=== PATIENT | male | born 2000 | race African-American/Black ===

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

== ENCOUNTER 2018-01-08 14:45 | Emergency (ER) | payer SELFPAY ==
[~2018-01-08] VITALS: Ht 170.2 cm; Wt 70.0 kg
[~2018-01-08 14:45] MED LIST changes: -AMOX500T PO; +AUGM500T7 PO; +DEXA4TAB PO; -MAGICPED SWISH-SWAL
[2018-01-08 14:50] VITALS: BP 139/85; PULSE 86; RESP 16; TEMP 100; O2SAT 100
[2018-01-08] MEDS ORDERED: AMOX500C PO (15:22)
--- NOTE | 2018-01-08 15:22 | PD ---
HPI Chief Complaint: ENT Complaint Time Seen by Provider: 15:20 Travel History International Travel<30 days: No Contact w/Intl Traveler<30days: No Traveled to known affect area: No History of Present Illness HPI 17-year-old male presents to the emergency department with complaint of a sore throat 2 days. Denies lump in throat, difficulty swallowing, unusual drooling. Reports painful swelling. Denies fever at home, but was told he had a fever when he checked into the ER today. Denies cough, nasal congestion. Reports right-sided ear pain. Denies abdominal pain, vomiting. Denies difficulty breathing. has not taken any medications or try any treatments to alleviate his symptoms. Symptoms are mild to moderate in severity. Aggravated with swallowing. No known relieving factors. No others with similar symptoms. Has history of strep throat and says his symptoms are similar. Denies significant past medical history. Has no other medical complaints. No known allergies. No primary care provider. No other modifying factors or associated signs and symptoms. PFSH Past Medical History Cancer: No Cardiovascular Problems: No Endocrine: No Genitourinary: No Immune Disorder: No Musculoskeletal: No Neurologic: No Psychiatric: No Reproductive: No Respiratory: No Social History Alcohol Use: No Tobacco Use: No Substance Use: No Allergies-Medications (Allergen,Severity, Reaction): Coded Allergies: No Known Allergies (Unverified Allergy, Unknown, 01/08/18) Reported Meds & Prescriptions Reported Meds & Active Scripts Active Amoxicillin 500 Mg Cap 500 Mg PO BID 10 Days Review of Systems Except as stated in HPI: all other systems reviewed are Neg Physical Exam Narrative GENERAL: Well-nourished, well-developed 17-year-old male patient, in no acute distress SKIN: Warm and dry. No rash. HEAD: Atraumatic. Normocephalic. EYES: Pupils equal and round at 3 mm with brisk reaction. No scleral icterus. No injection or drainage. PERRLA. ENT: Mucosa pink and dry. Pharynx with 2+ tonsils; with erythema, exudate, and edema. No uvular edema. No uvular, palatal, or tonsillar deviation. Airway patent. Voice is hoarse. EARS: Bilateral pinnae and external canals appear within normal limits. Bilateral tympanic membranes without erythema, dullness or perforation.. NECK: Trachea midline. Anterior cervical lymphadenopathy and tenderness. CARDIOVASCULAR: Regular rate RESPIRATORY: No accessory muscle use. GASTROINTESTINAL: Flat. MUSCULOSKELETAL: No obvious deformities. No clubbing. No cyanosis. No edema. NEUROLOGICAL: Awake and alert. Oriented 3. No obvious cranial nerve deficits. Motor grossly within normal limits. Normal speech. Moves all extremities. PSYCHIATRIC: Appropriate mood and affect; insight and judgment normal. Data Data Last Documented VS Vital Signs Date Time Temp Pulse Resp B/P (MAP) Pulse Ox O2 Delivery O2 Flow Rate FiO2 01/08/18 14:50 100.0 86 16 139/85 (103) 100 Orders Orders Amoxicillin (Trimox) (01/08/18 15:30) Ibuprofen (Motrin) (01/08/18 15:30) Ed Discharge Order (01/08/18 15:23) [facility] Medical Decision Making Medical Screen Exam Complete: Yes Emergency Medical Condition: Yes Medical Record Reviewed: Yes Differential Diagnosis Strep pharyngitis, viral pharyngitis, exudative pharyngitis, less likely peritonsillar abscess Narrative Course 16-year-old male physical exam consistent with exudative pharyngitis. Patient has fever of 100.0 in the ER. He is nontoxic-appearing. Amoxicillin and ibuprofen administered in the ER. Amoxicillin prescribed for home. Instructed patient to follow up with primary care provider. Patient verbalizes understanding and agreement with treatment plan. Patient is medically cleared and stable for discharge. Discussed reasons to return to the emergency department. Patient agrees with treatment plan. The patients vital signs are stable and the patient is stable for outpatient follow-up and treatment. Patient discharged home, stable and in no acute distress. Diagnosis Primary Impression: Exudative pharyngitis [facility]errals: [facility] Primary Care Physician Patient Instructions: General Instructions, Pharyngitis (ED) Departure Forms: Tests/Procedures, Work Release Enter return to work date: Jan 10, 2018 Additional Instructions: Take Antibiotics as prescribed and complete full course of antibiotics Throw away and change your toothbrush 24 hours after starting antibiotics Get plenty of sleep/rest Rest your voice Drink plenty of fluids to prevent dehydration Use warm saltwater gargles to soothe throat pain Use an air humidifier/turn off ceiling fans Use throat lozenges as needed for sore throat Use ibuprofen or acetaminophen as needed to relieve pain and fever Follow-up with your primary care provider within 2-4 days Return immediately to the emergency department with worsening of symptoms Med/Other Pt SpecificInfo: Prescription(s) given Scripts Amoxicillin (Amoxicillin) 500 Mg Cap 500 MG PO BID for Infection for 10 Days, #20 CAP 0 Refills Prov: Fadumo Bloom 01/08/18 Disposition: 01 DISCHARGE HOME Condition: Stable Fadumo Bloom Jan 08, 2018 15:22
[2018-01-08] MEDS ORDERED: AMOXICILLIN (TRIHYDRATE) 500 MG CAP PO ONE (15:30)
[2018-01-08] MEDS ORDERED: IBUPROFEN 600 MG TAB PO ONE (15:30)
== END 2018-01-08 15:33 | disposition home or self-care (01) ==
LOC: NEPK 14:45
DX: J02.9 Acute pharyngitis, unspecified (principal); H92.01 Otalgia, right ear
CPT/HCPCS: 99283

== ENCOUNTER 2018-01-12 06:28 | Inpatient (IN) | payer SELFPAY ==
[2018-01-12] VITALS (7 sets, daily range): BP systolic 115–167; BP diastolic 74–87; PULSE 80–110; RESP 16–20; TEMP 97.6–99.3; O2SAT 98–100
[~2018-01-12] VITALS: Ht 170.2 cm; Wt 61.9 kg
[~2018-01-12 06:28] MED LIST changes: +AMOX500C PO; -AUGM500T7 PO; -DEXA4TAB PO
[2018-01-12] MEDS ORDERED: PIPERACIL-TAZO 4.5 GM PREMIX 100 ML IV STA (07:20)
--- NOTE | 2018-01-12 07:29 | PD ---
HPI Chief Complaint: ENT Complaint Time Seen by Provider: 07:20 Travel History International Travel<30 days: No Contact w/Intl Traveler<30days: No Traveled to known affect area: No History of Present Illness HPI 17-year-old male patient presents to the ER today for 1 week history of worsening sore throat, difficulty swallowing, was seen 5 days ago for same thing , had been put on amoxicillin which she has been taking for 4 days without improvement. He denies any fevers, shortness of breath, or other symptoms. He states his throat is just getting more more swollen. Modifying Factors: None Associated Signs & Symptoms: Sore throat, throat swelling, difficulty swallowing Risk Factors: On antibiotics for 4 days PFSH Past Medical History Cancer: No Cardiovascular Problems: No Endocrine: No Gastrointestinal Disorders: No Genitourinary: No Immune Disorder: No Implanted Vascular Access Dvce: No Musculoskeletal: No Neurologic: No Psychiatric: No Reproductive: No Respiratory: No Past Surgical History Other Surgery: No Social History Alcohol Use: No Tobacco Use: No Substance Use: No Allergies-Medications (Allergen,Severity, Reaction): Coded Allergies: No Known Allergies (Unverified Allergy, Unknown, 01/12/18) Reported Meds & Prescriptions Reported Meds & Active Scripts Active Amoxicillin 500 Mg Cap 500 Mg PO BID 10 Days Review of Systems Except as stated in HPI: all other systems reviewed are Neg Physical Exam Narrative GENERAL: Well-developed young -[place] male patient currently in moderate distress. Awake and oriented 3. SKIN: Focused skin assessment warm/dry. HEAD: Atraumatic. Normocephalic. EYES: Pupils equal and round. No scleral icterus. No injection or drainage. ENT: Mucosa pink and moist. Significant posterior pharyngeal erythema or exudates. No uvular edema. But there is notable edema of bilateral tonsils and peritonsillar areas and what appears to be a large pustule at the left tonsil upper part. Airway patent. NECK: Trachea midline. No JVD. Supple. CARDIOVASCULAR: Regular rate and rhythm. No murmur appreciated. RESPIRATORY: No accessory muscle use. Clear to auscultation. Breath sounds equal bilaterally. GASTROINTESTINAL: Abdomen soft, non-tender, nondistended. Hepatic and splenic margins not palpable. MUSCULOSKELETAL: No obvious deformities. No clubbing. No cyanosis. No edema. NEUROLOGICAL: Awake and alert. No obvious cranial nerve deficits. Motor grossly within normal limits. Normal speech. PSYCHIATRIC: Appropriate mood and affect; insight and judgment normal. Data Data Last Documented VS Vital Signs Date Time Temp Pulse Resp B/P (MAP) Pulse Ox O2 Delivery O2 Flow Rate FiO2 01/12/18 07:00 93 18 135/87 (103) 100 Room Air 01/12/18 06:29 99.3 Orders Orders Complete Blood Count With Diff (01/12/18 07:20) Basic Metabolic Panel (Bmp) (01/12/18 07:20) Group A Rapid Strep Screen (01/12/18 07:20) Iv Access Insert/Monitor (01/12/18 07:20) Piperacil-Tazo 4.5 Gm Premix (Zosyn 4.5 (01/12/18 07:20) Ct Soft Tiss Neck W Iv Cont (01/12/18 ) Methylprednisolone So Succ Inj (Solumedr (01/12/18 07:30) Iohexol 350 Inj (Omnipaque 350 Inj) (01/12/18 07:38) Strep Culture (Group A) (01/12/18 07:26) Clindamycin 900 Mg/Ns Premix (Cleocin 90 (01/12/18 08:30) Admit Order (Ed Use Only) (01/12/18 09:08) Labs Laboratory Tests Test 01/12/18 07:26 White Blood Count 17.1 TH/MM3 Red Blood Count 4.80 MIL/MM3 Hemoglobin 14.9 GM/DL Hematocrit 44.1 % Mean Corpuscular Volume 91.9 FL Mean Corpuscular Hemoglobin 31.1 PG Mean Corpuscular Hemoglobin Concent 33.8 % Red Cell Distribution Width 12.5 % Platelet Count 329 TH/MM3 Mean Platelet Volume 9.2 FL Neutrophils (%) (Auto) 73.9 % Lymphocytes (%) (Auto) 11.3 % Monocytes (%) (Auto) 13.0 % Eosinophils (%) (Auto) 0.8 % Basophils (%) (Auto) 1.0 % Neutrophils # (Auto) 12.6 TH/MM3 Lymphocytes # (Auto) 1.9 TH/MM3 Monocytes # (Auto) 2.2 TH/MM3 Eosinophils # (Auto) 0.1 TH/MM3 Basophils # (Auto) 0.2 TH/MM3 CBC Comment AUTO DIFF Differential Comment AUTO DIFF CONFIRMED Toxic Vacuolation PRESENT Platelet Estimate NORMAL Platelet Morphology Comment NORMAL Keratocytes 1+ Blood Urea Nitrogen 11 MG/DL Creatinine 0.78 MG/DL Random Glucose 100 MG/DL Calcium Level 8.5 MG/DL Sodium Level 137 MEQ/L Potassium Level 3.9 MEQ/L Chloride Level 103 MEQ/L Carbon Dioxide Level 23.7 MEQ/L Anion Gap 10 MEQ/L Estimat Glomerular Filtration Rate 155 ML/MIN MDM Medical Decision Making Medical Screen Exam Complete: Yes Emergency Medical Condition: Yes Medical Record Reviewed: Yes Interpretation(s) Laboratory Tests Test 01/12/18 07:26 White Blood Count 17.1 TH/MM3 (4.0-11.0) Neutrophils (%) (Auto) 73.9 % (16.0-70.0) Monocytes (%) (Auto) 13.0 % (0.0-8.0) Neutrophils # (Auto) 12.6 TH/MM3 (1.8-7.7) Monocytes # (Auto) 2.2 TH/MM3 (0-0.9) Toxic Vacuolation PRESENT (NONE SEEN) Keratocytes 1+ (NORMAL) Last [address] 01/12/18 0000 Signed Impressions: CONCLUSION: 1. Focal area of abnormal soft tissue prominence and decreased attenuation in the left parapharyngeal region most characteristic of infection. There are no g as bubbles in this region. There is mild mass effect on the airway which is dis placed to the right. 2. Reactive appearing cervical chain lymph nodes. Differential Diagnosis Tonsillitis versus peritonsillar abscess versus posterior pharyngeal abscess Narrative Course Left-sided peritonsillar abscess, started to self drained in the ER. Patient was initiated on Zosyn and clindamycin, case has been discussed with Dr. Olivas who would like him to be admitted medically, states he will see the patient later. Case is discussed with Dr. Richter for admission. Diagnosis Primary Impression: Peritonsillar abscess Additional Impression: Sepsis Admitting Information Admitting Physician Requests: it Alisha Billy MD Jan 12, 2018 07:28
[2018-01-12] MEDS ORDERED: methylPREDNISolone SOD SUCC 125 MG/2 ML VIAL IV PUSH ONE (07:30)
[2018-01-12] MEDS ORDERED: IOHEXOL 350 MG/ML 10 ML VIAL (for RAD DIAG) IVCONTRAST ONE (07:38)
--- NOTE | 2018-01-12 07:58 | RADRPT ---
EXAM DATE: 01/12/2018 7:48 AM EDT AGE/SEX: 17 years / Male INDICATIONS: Throat pain for four days. CLINICAL DATA: This is the patient's initial encounter. Patient reports that signs and symptoms have been present for 4 - 6 days and indicates a pain score of 7/10. MEDICAL/SURGICAL HISTORY: None. None. RADIATION DOSE: 13.66 CTDI (mGy) COMPARISON: No prior exams available for comparison. TECHNIQUE: Helical acquisition was performed using a multirow detector CT scanner during the adminis tration of 69 ml Omnipaque 350 (iohexol) nonionic water-soluble contrast as a single exam dose. Usi ng automated exposure control and adjustment of the mA and/or kV according to patient size, radiation dose was kept as low as reasonably achievable to obtain optimal diagnostic quality images. DICOM fo rmat image data is available electronically for review and comparison. FINDINGS: Nasopharynx: The nasopharyngeal airway has a normal configuration. No mucosal thickening or mass is seen. Oropharynx: The intrinsic muscles of the tongue are symmetric. The tonsillar pillars are intact. T he prevertebral soft tissues are not thickened. Larynx: The supraglottic, glottic, and infraglottic structures are intact. Parapharyngeal: There is an area of abnormal soft tissue prominence and decreased attenuation in the left parapharyngeal region best seen on axial image #31 measuring up to approximately 2.3 x 1.8 cm. There is mild mass effect on the airway which is displaced to the left. There is prominent adenoidal tissue. Salivary Glands: The parotid and submandibular glands are intact. Lymph Nodes: No enlarged or necrotic-appearing nodes. There are multiple reactive appearing cervical chain nodes bilaterally. Thyroid: Homogeneous enhancement without evidence of nodule. Bones: Unremarkable. CONCLUSION: 1. Focal area of abnormal soft tissue prominence and decreased attenuation in the left parapharyngea l region most characteristic of infection. There are no gas bubbles in this region. There is mild mas s effect on the airway which is displaced to the right. 2. Reactive appearing cervical chain lymph nodes. Electronically signed by: Van Cardoza MD 01/12/2018 7:57 AM EDT
[2018-01-12 07:59] LABS: AUTOMATED NEUTROPHIL # 12.6 TH/MM3 (1.8-7.7); BASOPHIL # 0.2 TH/MM3 (0-0.2); EOSINOPHIL # 0.1 TH/MM3 (0-0.4); EOSINOPHIL % 0.8 % (0.0-4.0); HEMATOCRIT 44.1 % (39.0-51.0); HEMOGLOBIN 14.9 GM/DL (13.0-17.0); LYMPH % 11.3 % (9.0-44.0); LYMPHOCYTE # 1.9 TH/MM3 (1.0-4.8); MEAN CELL VOLUME 91.9 FL (80.0-100.0); MEAN CORPUSCULAR HEMOGLOBIN 31.1 PG (27.0-34.0); MEAN CORPUSCULAR HGB CONC 33.8 % (32.0-36.0); MEAN PLATELET VOLUME 9.2 FL (7.0-11.0); MONOCYTE # 2.2 TH/MM3 (0-0.9); NEUT % 73.9 % (16.0-70.0); PLATELET COUNT 329 TH/MM3 (150-450); RED CELL DISTRIBUTION WIDTH 12.5 % (11.6-17.2); WHITE BLOOD COUNT 17.1 TH/MM3 (4.0-11.0)
[2018-01-12 08:19] LABS: BICARBONATE 23.7 MEQ/L (21.0-32.0); CALCIUM 8.5 MG/DL (8.5-10.1); CREATININE 0.78 MG/DL (0.60-1.30)
[2018-01-12] MEDS ORDERED: CLINDAMYCIN 900 MG/NS PREMIX 50 ML IV ONE (08:30)
[2018-01-12 08:42] LABS: TOXIC VACUOLATION PRESENT (NONE SEEN)
[2018-01-12 08:43] LABS: KERATOCYTES 1+ (NORMAL)
--- NOTE | 2018-01-12 09:07 | HHI.HP ---
[facility] [place] No Primary Care Physician Admission Diagnosis Peritonsillar abscess Diagnoses: Travel History International Travel<30 Days: No Contact w/Intl Traveler <30 Da: No Traveled to Known Affected Are: No Sepsis Criteria SIRS Criteria (2 or more): Heart rate over 90, WBC > 61378, < 4000 or > 10% bands Sepsis Criteria (SIRS+source): Infect source susp/known History of Present Illness 17 year old male with no known medical history presenting with one week of progressive sore throat associated with difficulty swallowing. He was seen in the ER on 01/08 and prescribed Amoxicillin which he has been taking but he states he has had no improvement in his symptoms. A rapid strep was not done at the time and is negative today in the ER. The patient reports he has had strep infections in the past. Review of EMR reveals he was in the ICU last year for the same presentation with significant pharyngeal edema and peritonsillar abscess. The patient states he had a fever in the ER several days ago but has otherwise not been checking his temperature. He endorses associated halitosis, odynophagia, dysphagia, and muffled voice. He denies cough, abdominal pain, rhinorrhea, or congestion. He also reports some left ear tenderness and soreness in his neck; all of his symptoms, though, have improved since the left-sided peritonsillar abscess visualized on exam and on CT spontaneously drained. Review of Systems Except as stated in HPI: all other systems reviewed are Neg Past Family Social History Past Medical History Peritonsillar abscess October 2017 Past Surgical History None Reported Medications Amoxicillin 500 Mg Cap 500 Mg PO BID 10 Days Allergies: Coded Allergies: No Known Allergies (Unverified Allergy, Unknown, 01/12/18) Active Ordered Medications Clindamycin/ Sodium Chloride 50 ml @ 100 mls/hr ONCE ONCE IV Last administered on 01/12/18at 08:45; Admin Dose 100 MLS/HR; Start 01/12/18 at 08:30 ; Stop 01/12/18 at 08:59; Status DC Iohexol (Omnipaque 350 Inj) 69 ml STK-MED ONCE IVCONTRAST Last administered on at 07:38; Admin Dose 69 ML; Start 01/12/18 at 07:38; Stop 01/12/18 at 07: 39; Status DC Methylprednisolone Sodium Succinate (SoluMEDROL INJ) 125 mg ONCE ONCE IV PUSH Last administered on 01/12/18at 07:44; Admin Dose 125 MG; Start 01/12/18 at 07:30 ; Stop 01/12/18 at 07:31; Status DC Piperacillin Sod/ Tazobactam Sod 100 ml @ 200 mls/hr ONCE STAT IV Last administered on 01/12/18at 07:44; Admin Dose 200 MLS/HR; Start 01/12/18 at 07:20 ; Stop 01/12/18 at 07:49; Status DC Family History Parents alive and well, no significant medical problems run in the family Social History Lives with a friend 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 SKIN: No rashes, ecchymoses or lesions. Cool and dry. HEENT: Atraumatic. Normocephalic. No temporal or scalp tenderness. Pupils equal round and reactive. Extraocular motions intact. No scleral icterus. No injection or drainage. Nose without bleeding, purulent drainage or septal hematoma. Throat with significant erythema and swelling. No obvious pustule after it has spontaneous drained. Voice slightly muffled. Airway patent. NECK: Enlarged submandibular lymphadenopathy. CARDIOVASCULAR: Regular rate and rhythm without murmurs, gallops, or rubs. RESPIRATORY: Clear to auscultation. Breath sounds equal bilaterally. No wheezes , rales, or rhonchi. GASTROINTESTINAL: Abdomen soft, non-tender, nondistended. No guarding. MUSCULOSKELETAL: Extremities without clubbing, cyanosis, or edema. No joint tenderness, effusion, or edema noted. No calf tenderness. NEUROLOGICAL: Awake and alert. Motor and sensory grossly within normal limits. Laboratory Laboratory Tests Test 01/12/18 07:26 White Blood Count 17.1 Red Blood Count 4.80 Hemoglobin 14.9 Hematocrit 44.1 Mean Corpuscular Volume 91.9 Mean Corpuscular Hemoglobin 31.1 Mean Corpuscular Hemoglobin Concent 33.8 Red Cell Distribution Width 12.5 Platelet Count 329 Mean Platelet Volume 9.2 Neutrophils (%) (Auto) 73.9 Lymphocytes (%) (Auto) 11.3 Monocytes (%) (Auto) 13.0 Eosinophils (%) (Auto) 0.8 Basophils (%) (Auto) 1.0 Neutrophils # (Auto) 12.6 Lymphocytes # (Auto) 1.9 Monocytes # (Auto) 2.2 Eosinophils # (Auto) 0.1 Basophils # (Auto) 0.2 CBC Comment AUTO DIFF Differential Comment AUTO DIFF CONFIRMED Toxic Vacuolation PRESENT Platelet Estimate NORMAL Platelet Morphology Comment NORMAL Keratocytes 1+ Blood Urea Nitrogen 11 Creatinine 0.78 Random Glucose 100 Calcium Level 8.5 Sodium Level 137 Potassium Level 3.9 Chloride Level 103 Carbon Dioxide Level 23.7 Anion Gap 10 Estimat Glomerular Filtration Rate 155 Date/Time Source Procedure Growth Status 01/12/18 07:26 Throat Group A Streptococcus Screen Pending Received Result Diagram: 01/12/18 0726 01/12/[address] 01/12/18 0000 Signed Impressions: CONCLUSION: 1. Focal area of abnormal soft tissue prominence and decreased attenuation in the left parapharyngeal region most characteristic of infection. There are no g as bubbles in this region. There is mild mass effect on the airway which is dis placed to the right. 2. Reactive appearing cervical chain lymph nodes. Caprini VTE Risk Assessment Caprini VTE Risk Assessment: No/Low Risk (score <= 1) Caprini Risk Assessment Model Point Value = 1 Point Value = 2 Point Value = 3 Point Value = 5 Age 41-60 Minor surgery BMI > 25 kg/m2 Swollen legs Varicose veins or History of unexplained or recurrent spontaneous Oral contraceptives or hormone replacement Sepsis (< 1 month) Serious lung disease, including pneumonia (< 1 month) Abnormal pulmonary function Acute myocardial infarction Congestive heart failure (< 1 month) History of inflammatory bowel disease Medical patient at bed rest Age 61-74 Arthroscopic surgery Major open surgery (> 45 min) Laparoscopic surgery (> 45 min) Malignancy Confined to bed (> 72 hours) Immobilizing plaster cast Central venous access Age >= 75 History of VTE Family history of VTE Factor V Leiden Prothrombin [id number] Lupus anticoagulant Anticardiolipin antibodies Elevated serum homocysteine Heparin-induced thrombocytopenia Other congenital or acquired thrombophilia Stroke (< 1 month) Elective arthroplasty Hip, pelvis, or leg fracture Acute spinal cord injury (< 1 month) Prophylaxis Regimen Total Risk Factor Score Risk Level Prophylaxis Regimen 0-1 Low Early ambulation 2 Moderate Order ONE of the following: *Sequential Compression Device (SCD) *Heparin 5000 units SQ BID 3-4 Higher Order ONE of the following medications: *Heparin 5000 units SQ TID *Enoxaparin/Lovenox 40 mg SQ daily (WT < 150 kg, CrCl > 30 mL/min) *Enoxaparin/Lovenox 30 mg SQ daily (WT < 150 kg, CrCl > 10-29 mL/min) *Enoxaparin/Lovenox 30 mg SQ BID (WT < 150 kg, CrCl > 30 mL/min) AND/OR *Sequential Compression Device (SCD) 5 or more Highest Order ONE of the following medications: *Heparin 5000 units SQ TID (Preferred with Epidurals) *Enoxaparin/Lovenox 40 mg SQ daily (WT < 150 kg, CrCl > 30 mL/min) *Enoxaparin/Lovenox 30 mg SQ daily (WT < 150 kg, CrCl > 10-29 mL/min) *Enoxaparin/Lovenox 30 mg SQ BID (WT < 150 kg, CrCl > 30 mL/min) AND *Sequential Compression Device (SCD) Assessment and Plan Problem List: (1) Peritonsillar abscess ICD Code: J36 - Peritonsillar abscess Status: Acute Assessment and Plan 17 year old AA male admitted for peritonsillar abscess and pharyngitis with failed outpatient treatment and associated odynophagia, dysphagia, and muffled voice. 1. Peritonsillar abscess - Rapid strep negative but patient has also been on amoxicillin for the past four days - CT neck demonstrating a focal area of abnormal soft tissue prominence and decreased attenuation in the left parapharyngeal region most characteristic of infection with mild mass-effect on the airway displaced to the right - Given Clindamycin, Zosyn, and SoluMedrol x 1 in the ED - Resume Clindamycin 600 mg IV Q6H - Decadron 4 mg IV Q8H - Ofirmev and morphine PRN pain - PPI since getting systemic steroids - ENT consulted, Dr. Oilvas aware - Monitor closely for acute airway compromise 2. Sepsis - Meet criteria based on elevated WBC, tachycardia, and source of infection - Check lactic acid and blood cultures - Treat underlying infection as above - NS at 100 ml/hr x 1 bag DVT prophylaxis: Low risk and ambulatory Code Status FULL Discussed Condition With The patient and Dr. Bennett Physician Certification 2 Midnight Certification Type: Admission for Inpatient Services Order for Inpatient Services The services are ordered in accordance with Medicare regulations or non- Medicare payer requirements, as applicable. In the case of services not specified as inpatient-only, they are appropriately provided as inpatient services in accordance with the 2-midnight benchmark. Estimated LOS (days): 2 2 days is the estimated time the patient will need to remain in the hospital, assuming treatment plan goals are met and no additional complications. Post-Hospital Plan: Home Charisse Richter MD Jan 12, 2018 09:07
[2018-01-12] MEDS ORDERED: LACTULOSE SYRUP 20 GM/30 ML CUP PO PRN (09:30)
[2018-01-12] MEDS ORDERED: DOCUSATE SODIUM 50 MG/SENNA 8.6 MG TAB PO PRN (09:30)
[2018-01-12] MEDS ORDERED: SENNOSIDES 8.6 MG TAB PO PRN (09:30)
[2018-01-12] MEDS ORDERED: NALOXONE HCL 0.4 MG/ML AMP IV PUSH PRN (09:30)
[2018-01-12] MEDS ORDERED: BISACODYL 10 MG SUPP RECTAL PRN (09:30)
[2018-01-12] MEDS ORDERED: ACETAMINOPHEN 325 MG TAB PO PRN (09:30)
[2018-01-12] MEDS ORDERED: MAGNESIUM HYDROXIDE SUSP 30 ML CUP PO PRN (09:30)
[2018-01-12] MEDS ORDERED: SODIUM CHLORIDE 0.9% FLUSH 10 ML FLUSH IV FLUSH PRN (09:30)
[2018-01-12] MEDS ORDERED: ONDANSETRON HCL 4 MG/2 ML VIAL IVP PRN (09:30)
[2018-01-12] MEDS ORDERED: MORPHINE SULFATE 2 MG/ML SYRINGE IM PRN (09:45)
[2018-01-12] MEDS ORDERED: ACETAMINOPHEN 1000 MG/100 ML 100 ML IV PRN (09:45)
[2018-01-12] MEDS: PANTOPRAZOLE SOD 40 MG DELAYED RELEASE TAB PO SCH (09:56)
[2018-01-12] MEDS ORDERED: SODIUM CHLOR 0.9% 1000 ML INJ 1,000 ML IV SCH (10:00)
[2018-01-12] MEDS: CLINDAMYCIN 600 MG/NS PREMIX 50 ML IV SCH ×2 (13:43→21:06)
[2018-01-12] MEDS: DEXAMETHASONE SOD PHOS 4 MG/ML VIAL IV PUSH SCH (16:44)
[2018-01-12] MEDS: SODIUM CHLORIDE 0.9% FLUSH 10 ML FLUSH IV FLUSH SCH (21:06)
[2018-01-13] MEDS: DEXAMETHASONE SOD PHOS 4 MG/ML VIAL IV PUSH SCH ×2 (00:24→08:07)
[2018-01-13 00:46] VITALS: BP 130/70; PULSE 84; RESP 19; TEMP 98.1; O2SAT 100
[2018-01-13] MEDS: CLINDAMYCIN 600 MG/NS PREMIX 50 ML IV SCH ×2 (03:30→08:07)
[2018-01-13 04:39] VITALS: BP 122/65; PULSE 68; RESP 18; TEMP 97.5; O2SAT 99
[2018-01-13 08:02] VITALS: BP 125/78; PULSE 68; RESP 16; TEMP 97.6; O2SAT 99
[2018-01-13] MEDS: SODIUM CHLORIDE 0.9% FLUSH 10 ML FLUSH IV FLUSH SCH (08:07)
[2018-01-13] MEDS: PANTOPRAZOLE SOD 40 MG DELAYED RELEASE TAB PO SCH (08:07)
[2018-01-13] MEDS ORDERED: PRED20 PO (10:12)
[2018-01-13 10:14] LABS: AUTOMATED NEUTROPHIL # 15.7 TH/MM3 (1.8-7.7); BASOPHIL % 0.1 % (0.0-2.0); HEMOGLOBIN 13.9 GM/DL (13.0-17.0); LYMPH % 7.8 % (9.0-44.0); LYMPHOCYTE # 1.4 TH/MM3 (1.0-4.8); MEAN CELL VOLUME 94.3 FL (80.0-100.0); MEAN CORPUSCULAR HEMOGLOBIN 31.2 PG (27.0-34.0); MONO % 6.8 % (0.0-8.0); MONOCYTE # 1.3 TH/MM3 (0-0.9); NEUT % 85.3 % (16.0-70.0); PLATELET COUNT 358 TH/MM3 (150-450); RED BLOOD COUNT 4.45 MIL/MM3 (4.50-5.90); RED CELL DISTRIBUTION WIDTH 12.6 % (11.6-17.2); WHITE BLOOD COUNT 18.4 TH/MM3 (4.0-11.0)
--- NOTE | 2018-01-13 10:16 | HHI.PR ---
Subjective Remarks Feels much better. No more throat pain and able to swallow and eat breakfast this morning ate pancakes and drank fluids without any difficulty. Did see Dr. Olivas yesterday evening. Objective Vitals Vital Signs Date Time Temp Pulse Resp B/P (MAP) Pulse Ox O2 Delivery O2 Flow Rate FiO2 01/13/18 08:02 97.6 68 16 125/78 (94) 99 01/13/18 04:39 97.5 68 18 122/65 (84) 99 01/13/18 00:46 98.1 84 19 130/70 (90) 100 01/12/18 21:30 99 21 01/12/18 20:53 97.7 81 20 115/75 (88) 99 01/12/18 16:00 98.0 83 20 130/75 (93) 98 01/12/18 12:37 97.6 80 20 125/78 (94) 99 01/12/18 10:21 83 18 124/74 (91) 100 Room Air I/O 01/12/18 01/12/18 01/12/18 01/13/18 01/13/18 01/13/18 07:00 15:00 23:00 07:00 15:00 23:00 Intake Total 100 ml Balance 100 ml Intake IV Total 100 ml # Voids 2 1 Result Diagram: 01/12/1872501/12/18725 Objective Remarks GENERAL: This is a well-nourished, well-developed patient, in no apparent distress. HEENT: OP -decreased redness with tonsillar hypertrophy CARDIOVASCULAR: Regular rate and rhythm without murmurs, gallops, or rubs. RESPIRATORY: Clear to auscultation. Breath sounds equal bilaterally. No wheezes , rales, or rhonchi. GASTROINTESTINAL: Abdomen soft, non-tender, nondistended. Normal active bowel sounds MUSCULOSKELETAL: Extremities without clubbing, cyanosis, or edema. NEURO: Alert & Oriented x4 to person, place, time, situation. Moves all ext x4 A/P Problem List: (1) Peritonsillar abscess ICD Code: J36 - Peritonsillar abscess Status: Acute Assessment and Plan 17 year old AA male admitted for peritonsillar abscess and pharyngitis with failed outpatient treatment and associated odynophagia, dysphagia, and muffled voice. 1. Peritonsillar abscess with sepsis on presentation based on elevated WBC tachycardia -symptoms has improved overnight - Rapid strep negative but patient has also been on amoxicillin for the past four days, would continue with antibiotics as symptoms is improved. Prescription for prednisone also to be given -Was given clindamycin 600 mg IV Q6H - Decadron 4 mg IV Q8H -Given Ofirmev and morphine PRN pain - PPI since getting systemic steroids - ENT consulted, Dr. Olivas recommended follow-up in 4 weeks for outpatient surgery of tonsillar removal DVT prophylaxis: No mechanical or pharmaceutical VTE prophalaxis administered due to patient's low risk assessment of VTE. Encouraged ambulation. Discharge Planning Discharge patient to home Condition on discharge: Improved Regular Diet as tolerated Ad Jael activity Rx written: Prednisone 20 mg p.o. daily for 5 days Complete course of amoxicillin Follow-up with primary care physician Follow-up with Dr. Olivas in 4 weeks to evaluate for outpatient surgical intervention for tonsillar removal Shanel Lux MD Jan 13, 2018 10:16
--- NOTE | 2018-01-13 10:18 | HHI.DCPOC ---
Discharge Care Plan Diagnosis: (1) Peritonsillar abscess Your Health Problems Are: Difficulty to Swallow Goals to Promote Your Health * To prevent worsening of your condition and complications * To maintain your health at the optimal level Directions to Meet Your Goals Take your medications as prescribed Follow your dietary instruction Follow activity as directed Complete prescribed antibiotics Follow-up with Dr. Olivas in 4 weeks Keep your appointments as scheduled Take your immunizations and boosters as scheduled If your symptoms worsen call your PCP, if no PCP go to Urgent Care Center or Emergency Room Smoking is Dangerous to Your Health. Avoid second hand smoke Call the 24-hour hour crisis hotline for domestic abuse at Shanel Lux MD Jan 13, 2018 10:18
[2018-01-13 11:07] VITALS: O2SAT 99
== END 2018-01-13 11:07 | disposition home or self-care (01) | DRG 872 ==
LOC: NEPE 06:28 → NEDA 09:10 → N05B 11:41
PROVIDERS: ADMIT Family Medicine; ATTEND Family Medicine
DX: A41.9 Sepsis, unspecified organism (principal); J36 Peritonsillar abscess
CPT/HCPCS: 70491; 80048; 83605; 85025; 87040; 87081; 87880; J1100; J2543; J2930; J7030; Q9967

== ENCOUNTER 2018-01-28 20:05 | Inpatient (IN) ==
[2018-01-29] MEDS ORDERED: Dexamethasone Inj 20 MG/5 ML Vial IV.PUSH ONE (00:37)
[2018-01-29] MEDS ORDERED: Sod Chloride 0.9% Inj 1,000 ML IV.SIG ONE (00:37)
[2018-01-29] MEDS ORDERED: Ketorolac Inj 30 MG/ML (IVP) Vial IV.PUSH ONE (00:37)
--- NOTE | 2018-01-29 00:44 | ED ---
HPI General Chief complaint: Respiratory Symptoms Stated complaint: toothache Time Seen by Provider: 01/29/18 00:33 Source: patient Mode of arrival: ambulatory Limitations: no limitations History of Present Illness HPI narrative: Patient is a 17 year old male who comes in complaining of sore throat. He was here at the end of December for the same thing. He was treated with Decadron and Clindamycin. He says he felt better, but as soon as he stopped the antibiotics, his symptoms came back. He says these current symptoms have been going on for 4 days. He has tried Ibuprofen with minimal relief. He is supposed to follow up with ENT for removal of his tonsils at the end of January. He denies other symptoms. He is having difficulty swallowing. Severity is moderate. Related Data Allergies Allergy/AdvReac Type Severity Reaction Status Date / Time No Known Allergies Allergy Unverified 01/28/18 21:10 Review of Systems Except as stated in HPI: all other systems reviewed are negative Constitutional Reports fever(s) ENT Reports change in voice and Reports sore throat Cardiovascular Denies chest pain Respiratory Denies dyspnea Gastrointestinal Denies nausea and Denies vomiting Musculoskeletal Denies myalgias and Denies arthralgias Integumentary/Breasts Denies change in pigmentation and Denies lesions Neurologic Denies focal weakness PMFSH History History Provided By: Patient Medical History Medical History Patient denies medical problems (Acute) Surgical History Surgical History No history of previous surgery (Acute) Social History Social History Second Hand Smoke Exposure: No Smoking Status: Never smoker How Often Do You Have a Drink Containing Alcohol: Never Recent Travel in [facility] within the Last 8 Weeks: No Recent Out of Country Travel within the Last 8 Weeks: No Exam Narrative Exam Narrative: GENERAL: Awake and alert, in no acute distress. SKIN: Focused skin assessment warm/dry. HEAD: Atraumatic. Normocephalic. EYES: Pupils equal and round. No scleral icterus. ENT: Very enlarged tonsils with exudates present. Mucous membranes pink and moist. NECK: Trachea midline. No JVD. CARDIOVASCULAR: Tachycardia. No murmur appreciated. RESPIRATORY: No accessory muscle use. Clear to auscultation. Breath sounds equal bilaterally. GASTROINTESTINAL: Abdomen soft, non-tender, nondistended. MUSCULOSKELETAL: No obvious deformities. No clubbing. No cyanosis. No edema. NEUROLOGICAL: Awake and alert. No obvious cranial nerve deficits. Motor grossly within normal limits. Normal speech. PSYCHIATRIC: Appropriate mood and affect; insight and judgment normal. Course Initial Documented Vital Signs Temperature 101 F H 01/28/18 21:10 Pulse Rate 107 H 01/28/18 21:10 Respiratory Rate 16 01/28/18 21:10 Blood Pressure 150/91 H 01/28/18 21:10 Pulse Oximetry 100 01/28/18 21:10 Last Documented Vital Signs Temperature 101 F H 01/28/18 21:10 Pulse Rate 107 H 01/28/18 21:10 Respiratory Rate 16 01/28/18 21:10 Blood Pressure 150/91 H 01/28/18 21:10 Pulse Oximetry 100 01/28/18 21:10 Medical Decision Making [facility] Narrative Medical decision making narrative: Patient is a 17-year-old male comes in complaining of grade patient is febrile on arrival. IV established, labs sent. Patient given IV fluids, Decadron, Toradol. CT of the neck ordered. 0245: This patient was signed out to me pending lab work and imaging studies. Briefly this is a 17-year-old male with sore throat for the past few weeks but worse over the past few days, fevers, difficulty swallowing. Recently treated for a left-sided peritonsillar abscess. CT soft tissue neck today reveals diffuse parapharyngeal inflammation with improved left parapharyngeal abscess now measuring 1.1 x 1.2 cm however there has been interval development of an anterior parapharyngeal phlegmon and right parapharyngeal abscess measuring 2.8 x 1.4 cm. The patient has bilateral peritonsillar abscess formation. He has worsening leukocytosis with WBC count of 22.6. He has been given IV fluids, Toradol, Decadron, Unasyn. The plan would be to admit the patient given the interval development of bilateral peritonsillar abscess formation. Lab Data Result diagrams: 01/29/18 01:30 01/29/18 02:08 Lab Results 01/29/18 01/29/1818 Range/Units 01:30 02:08 02:08 WBC 22.6 H (4.0-11.0) th/mm3 RBC 4.61 (4.50-5.90) mil/mm3 Hgb 14.4 (13.0-17.0) gm/dL Hct 42.4 (39.0-51.0) % MCV 92.1 (80.0-100.0) fL MCH 31.2 (27.0-34.0) pg MCHC 33.8 (32.0-36.0) % RDW 13.4 (11.6-17.2) % Plt Count 446 (150-450) th/mm3 MPV 9.0 (7.0-11.0) fL Neut % (Auto) 86.6 H (16.0-70.0) % Lymph % (Auto) 5.7 L (9.0-44.0) % [place] % (Auto) 7.5 (0.0-8.0) % Eos % (Auto) 0.0 (0.0-4.0) % Baso % (Auto) 0.2 (0.0-2.0) % Neut # (Auto) 19.5 H (1.8-7.7) th/mm3 Lymph # (Auto) 1.3 (1.0-4.8) th/mm3 [place] # (Auto) 1.7 H (0.0-0.9) th/mm3 Eos # (Auto) 0.0 (0.0-0.4) th/mm3 Baso # (Auto) 0.1 (0.0-0.2) th/mm3 WBC Differential . Differential Comment Auto diff final Sodium 140 (136-145) meq/L Potassium 4.1 (3.5-5.1) meq/L Chloride 106 (98-107) meq/L Carbon Dioxide 24.6 (21.0-32.0) meq/L Anion Gap 9 (5-15) meq/L BUN 11 (7-18) mg/dL Creatinine 0.86 (0.60-1.30) mg/dL Estimated GFR Greater than 89 (>89) mL/min Random Glucose 79 (74-106) mg/dL Lactic Acid 0.8 (0.4-2.0) mmol/L Calcium 8.6 (8.5-10.1) mg/dL Total Bilirubin 0.5 (0.2-1.0) mg/dL AST 11 L (15-39) U/L ALT 16 (9-52) U/L Alkaline Phosphatase 68 (45-117) U/L Total Protein 7.9 (6.4-8.2) g/dL Albumin 3.4 (3.4-5.0) g/dL Imaging Data Radiologist's impression: ITS Impressions Soft Tissue Neck CT 01/29/18 00:37 CONCLUSION: 1. Diffuse parapharyngeal inflammation with improved left parapharyngeal abscess now measuring 1.1 x 1.2 cm in comparison to 2.3 x 1.[address] exam. However, there has been interval development of anterior parapharyngeal phlegmon and right parapharyngeal abscess measuring 2.8 x 1.4 cm. Discharge Plan Discharge Disposition Patient Disposition: 30 Still Patient Discharge Condition Condition: Stable Discharge Details Diagnosis: Abscess, peritonsillar, Sepsis Physicians Team ED Provider: Eda Nails ED Midlevel Provider: Andres Dodd Primary Care Provider: Primary Care Meenakshii,No Status ED Status: With Doctor
--- NOTE | 2018-01-29 01:31 | CT ---
EXAM DATE: 01/29/2018 1:15 AM EDT AGE/SEX: 17 years / Male INDICATIONS: Dysphagia. Bilateral neck swelling, evaluate for abscess. CLINICAL DATA: This is the patient's initial encounter. Patient reports that signs and symptoms have been present for 1 week and indicates a pain score of 10/10. MEDICAL/SURGICAL HISTORY: None. None. RADIATION DOSE: 14.34 CTDI (mGy) [place]PAR[place]: [facility] [place]AST, 01/12/2018. . TECHNIQUE: Helical acquisition was performed using a multirow detector CT scanner during the adminis tration of 70 ml Omnipaque 350 (iohexol) nonionic water-soluble contrast as a single exam dose. Usi ng automated exposure control and adjustment of the mA and/or kV according to patient size, radiation dose was kept as low as reasonably achievable to obtain optimal diagnostic quality images. DICOM fo rmat image data is available electronically for review and comparison. FINDINGS: Nasopharynx: The nasopharyngeal airway has a normal configuration. No mucosal thickening or mass is seen. Oropharynx: The intrinsic muscles of the tongue are symmetric. The tonsillar pillars are intact. T he prevertebral soft tissues are not thickened. Larynx: The supraglottic, glottic, and infraglottic structures are intact. Parapharyngeal: Previously described left parapharyngeal abscess has improved in size now measuring 1.1 x 1.2 cm in comparison to 2.3 x 1.8 cm. However, there has been interval development of anterior the right parapharyngeal edema with ill-defined low-density collection in the right parapharyngeal sp cookie measuring 2.8 x 1.4 cm. Prominent adenoids. Salivary Glands: The parotid and submandibular glands are intact. Lymph Nodes: Multiple reactive/infectious bilateral cervical nodes similar to prior exam. No necroti c adenopathy. Thyroid: Homogeneous enhancement without evidence of nodule. Bones: Unremarkable. CONCLUSION: 1. Diffuse parapharyngeal inflammation with improved left parapharyngeal abscess now measuring 1.1 x 1.2 cm in comparison to 2.3 x 1.[address] exam. However, there has been interval development of anterior parapharyngeal phlegmon and right parapharyngeal abscess measuring 2.8 x 1.4 cm. Electronically signed by: Meng Emanuel MD 01/29/2018 1:29 AM EDT
[2018-01-29] MEDS ORDERED: Ampicillin/Sulbactam Inj 3 GM in Sodium Chloride 0.9% Inj 100 ML IV.SIG ONE (01:33)
[2018-01-29 01:41] LABS: Baso # (Auto) 0.1 th/mm3 (0.0-0.2); Baso % (Auto) 0.2 % (0.0-2.0); Hematocrit 42.4 % (39.0-51.0); Hemoglobin 14.4 gm/dL (13.0-17.0); Lymph # (Auto) 1.3 th/mm3 (1.0-4.8); Lymph % (Auto) 5.7 % (9.0-44.0); Mean Corpuscular HGB Conc 33.8 % (32.0-36.0); Mean Corpuscular Hemoglobin 31.2 pg (27.0-34.0); Mean Corpuscular Volume 92.1 fL (80.0-100.0); Mono # (Auto) 1.7 th/mm3 (0.0-0.9); Mono % (Auto) 7.5 % (0.0-8.0); Neut # (Auto) 19.5 th/mm3 (1.8-7.7); Neut % (Auto) 86.6 % (16.0-70.0); Platelet Count 446 th/mm3 (150-450); Red Blood Count 4.61 mil/mm3 (4.50-5.90); Red Cell Distribution Width 13.4 % (11.6-17.2); White Blood Count 22.6 th/mm3 (4.0-11.0)
[2018-01-29 02:42] LABS: Alanine Aminotransferase 16 U/L (9-52); Albumin 3.4 g/dL (3.4-5.0); Anion Gap 9 meq/L (5-15); Aspartate Aminotransferase 11 U/L (15-39); Blood Urea Nitrogen 11 mg/dL (7-18); Calcium 8.6 mg/dL (8.5-10.1); Carbon Dioxide 24.6 meq/L (21.0-32.0); Chloride 106 meq/L (98-107); Glomerular Filtration Rate Greater Than 89 mL/min (>89); Glucose,Random 79 mg/dL (74-106); Potassium 4.1 meq/L (3.5-5.1); Sodium 140 meq/L (136-145)
[2018-01-29 02:44] LABS: Alkaline Phosphatase 68 U/L (45-117); Total Protein 7.9 g/dL (6.4-8.2)
[2018-01-29] MEDS ORDERED: Temazepam 15 MG Capsule PO PRN (05:02)
[2018-01-29] MEDS ORDERED: Bisacodyl 10 MG Supp RECTAL PRN (05:02)
[2018-01-29] MEDS ORDERED: Acetaminophen 325 MG Tablet PO PRN ×2 (05:02→11:03)
[2018-01-29] MEDS: Sod Chloride 0.9% Inj 1,000 ML IV.CONT SCH ×2 (05:37→16:26)
[2018-01-29] MEDS: Ampicillin/Sulbactam Inj 3 GM in Sodium Chloride 0.9% Inj 100 ML IV.SIG SCH ×3 (08:10→20:31)
--- NOTE | 2018-01-29 08:48 | P.HPIM ---
History of Present Illness Primary Care Physician: No Primary Care Physician Chief Complaint: sore throat History of Present Illness: This is a 17-year-old male with no medical comorbidity presenting with sore throat. Of note, he was in the hospital in December with similar complaints. He was treated with Decadron and clindamycin and felt better but as soon as he stopped his antibiotics, his symptoms came back. He says his recurrent symptoms started about 4 days ago, complaining of mild to moderate pain with minimal relief with ibuprofen. He is supposed to follow-up with ENT for removal of tonsils at the end of January but has been having difficulty swallowing hence the patient decided to the hospital. This is accompanied with fever and chills but no shortness of breath, nausea, vomiting, diarrhea or abdominal pain. Inpatient Certification: I certify that the inpatient services were ordered in accordance with Medicare regulations governing the order. This includes certification that hospital inpatient services are reasonable and necessary and in the case of services not specified as inpatient-only under 42 CFR 419.22(n), that they are appropriately provided as inpatient services in accordance to with the 2-midnight benchmark under 43 CFR 412.3(e) Estimated Total Length of Stay (Days): 2 Plans for Post Hospital Care: Home Review of Systems All other pertinent systems were reviewed and are negative. PMFSH - History History Provided By: Patient - Medical / Surgical Hx Neg / Unobtainable Medical Problems Denied: Yes - Medical History Medical History: Medical History (Last Reviewed 01/29/18 @ 10:58 by Brooklynn Claros MD) Patient denies medical problems - Surgical History Surgical History: Surgical History (Last Reviewed 01/29/18 @ 10:58 by Brooklynn Claros MD) No history of previous surgery - Tobacco History Second Hand Smoke Exposure: No Smoking Status: Never smoker - Alcohol History How Often Do You Have a Drink Containing Alcohol: Never - Substance Use History Substance History: No History of Abuse - Travel History Recent Travel in the [place] Within the Last 8 Weeks: No Recent Travel Out of the Country Within the Last 8 Weeks: No - Immunization History Tetanus Immunization: Unsure Hx Influenza Vaccine This Season: No Medications and Allergies Active Medications: Active Medications Acetaminophen (Tylenol) 650 mg PO Q4H PRN PRN Reason: Temp > 100.4 Al Hydroxide/Mg Hydroxide (Milk Of Magnesia Liq) 30 ml PO Q12H PRN PRN Reason: Mild Constipation Bisacodyl (Dulcolax Supp) 10 mg RECTAL DAILY PRN PRN Reason: SEVERE CONSITIPATION Dexamethasone Sodium Phosphate (Decadron Inj) 4 mg IV.PUSH Q6HR [facility] Last Admin: 01/29/18 06:06 Dose: 4 mg Sodium Chloride (Ns Inj) 1,000 mls @ 100 mls/hr IV.CONT .Q10H [facility] Last Admin: 01/29/18 05:37 Dose: 100 mls/hr Ampicillin Sodium/Sulbactam (Sodium 3 gm/ Sodium Chloride) 100 mls @ 200 mls/ hr IV.SIG Q6H [facility] Last Admin: 01/29/18 08:10 Dose: 200 mls/hr Lactulose (Lactulose Liq) 30 ml PO DAILY PRN PRN Reason: SEVERE CONSITIPATION Ondansetron HCl (Zofran Inj) 4 mg IV.PUSH Q6H PRN PRN Reason: NAUSEA OR VOMITING Senna/Docusate Sodium (Alondra-Colace) 1 tab PO BID [facility] Sennosides (Senokot) 17.2 mg PO Q12H PRN PRN Reason: Moderate Constipation Temazepam (Restoril) 15 mg PO HS PRN PRN Reason: INSOMNIA Allergies Allergy/AdvReac Type Severity Reaction Status Date / Time No Known Allergies Allergy Unverified 01/28/18 21:10 Home Medications Medication Instructions Recorded Confirmed Type No Known Home Medications 01/29/18 01/29/18 History Exam Vital signs: Vital Signs 01/28/18 21:10 01/29/18 02:58 01/29/18 05:50 Temperature 101 F H 99.3 F 97.8 F Pulse Rate 107 H 107 H 79 Respiratory Rate 16 15 16 Blood Pressure 150/91 H 110/52 L 136/93 H Pulse Oximetry 100 100 Intake & Output 01/28/18 01/29/18 01/29/18 18:59 06:59 18:59 Weight 150 kg Other: Weight On Admission 150 kg Narrative: Not in the distress Pupils equal reactive to light Moist mucosa Right tonsillar edema, no exudates or discharge No cervical lymphadenopathy Regular rate and rhythm Clear breath sounds Abdomen soft nontender Alert awake and oriented 3, no focal deficits Results - Labs CBC & Chem 7: 01/29/18 01:30 01/29/18 02:08 Labs: Short CBC 01/29/18 Range/Units 01:30 WBC 22.6 H (4.0-11.0) th/mm3 Hgb 14.4 (13.0-17.0) gm/dL Hct 42.4 (39.0-51.0) % Plt Count 446 (150-450) th/mm3 BMP 01/29/18 02:08 Sodium 140 Potassium 4.1 Chloride 106 Carbon Dioxide 24.6 BUN 11 Creatinine 0.86 Calcium 8.6 Liver Function 01/29/18 Range/Units 02:08 Total Bilirubin 0.5 (0.2-1.0) mg/dL AST 11 L (15-39) U/L ALT 16 (9-52) U/L Alkaline Phosphatase 68 (45-117) U/L Albumin 3.4 (3.4-5.0) g/dL - Imaging Impressions Soft Tissue Neck CT 01/29/18 00:37 CONCLUSION: 1. Diffuse parapharyngeal inflammation with improved left parapharyngeal abscess now measuring 1.1 x 1.2 cm in comparison to 2.3 x 1.[address] exam. However, there has been interval development of anterior parapharyngeal phlegmon and right parapharyngeal abscess measuring 2.8 x 1.4 cm. Caprini VTE Risk Assessment Caprini VTE Risk Assessment: No/Low Risk (score <= 1) Caprini Risk Assessment Model: Point Value = 1 Point Value = 2 Point Value = 3 Point Value = 5 Age 41-60 Minor surgery BMI > 25 kg/m2 Swollen legs Varicose veins or History of unexplained or recurrent spontaneous Oral contraceptives or hormone replacement Sepsis (< 1 month) Serious lung disease, including pneumonia (< 1 month) Abnormal pulmonary function Acute myocardial infarction Congestive heart failure (< 1 month) History of inflammatory bowel disease Medical patient at bed rest Age 61-74 Arthroscopic surgery Major open surgery (> 45 min) Laparoscopic surgery (> 45 min) Malignancy Confined to bed (> 72 hours) Immobilizing plaster cast Central venous access Age >= 75 History of VTE Family history of VTE Factor V Leiden Prothrombin [id number] Lupus anticoagulant Anticardiolipin antibodies Elevated serum homocysteine Heparin-induced thrombocytopenia Other congenital or acquired thrombophilia Stroke (< 1 month) Elective arthroplasty Hip, pelvis, or leg fracture Acute spinal cord injury (< 1 month) Prophylaxis Regimen: Total Risk Factor Score Risk Level Prophylaxis Regimen 0-1 Low Early ambulation 2 Moderate Order ONE of the following: *Sequential Compression Device (SCD) *Heparin 5000 units SQ BID 3-4 Higher Order ONE of the following medications: *Heparin 5000 units SQ TID *Enoxaparin/Lovenox 40 mg SQ daily (WT < 150 kg, CrCl > 30 mL/min) *Enoxaparin/Lovenox 30 mg SQ daily (WT < 150 kg, CrCl > 10-29 mL/min) *Enoxaparin/Lovenox 30 mg SQ BID (WT < 150 kg, CrCl > 30 mL/min) AND/OR *Sequential Compression Device (SCD) 5 or more Highest Order ONE of the following medications: *Heparin 5000 units SQ TID (Preferred with Epidurals) *Enoxaparin/Lovenox 40 mg SQ daily (WT < 150 kg, CrCl > 30 mL/min) *Enoxaparin/Lovenox 30 mg SQ daily (WT < 150 kg, CrCl > 10-29 mL/min) *Enoxaparin/Lovenox 30 mg SQ BID (WT < 150 kg, CrCl > 30 mL/min) AND *Sequential Compression Device (SCD) Assessment and Plan - Plan This is a 17-year-old male with no comorbidities admitted for peritonsillar abscess and tonsillitis Peritonsillar abscess and tonsillitis-continue IVF, continue Unasyn for now with pain medications if needed, continue Decadron. Consult ENT. Patient is scheduled for interval tonsillectomy February 12. Per ENT, will need IV meds until Saturday and may discharge on oral medications. If needed, can aspirate at bedside, but tonsillectomy with infection is a little risky. Possible discharge Saturday morning, okay for oral feeding. Follow-up for outpatient surgery with Dr. Olivas February 12. Labs reviewed, leukocytosis of 22.6, BMP is unremarkable. Group A streptococcus antigen negative. Blood cultures negative. Recheck BMP. No risk for DVT, ambulatory. H&P: Quality - VTE Deep Vein Thrombosis/Pulmonary Embolism Present on Admission: Yes
--- NOTE | 2018-01-29 09:21 | P.CON ---
History of Present Illness Service: ENT Consult date: 01/29/18 Reason for Consult: Tonsillitis Primary Care Provider: No Primary Care Physician Chief Complaint: sore throat History of Present Illness: 17 year old male. Had second peritonsillar abscess in December. Is scheduled for interval tonsillectomy with Dr Olivas February 12. Had a flair up and admitted with bilateral edema. Has received Decadron and Unasyn. Feels better, Review of Systems Ears, Nose, Mouth, and Throat: Reports difficulty swallowing, Reports throat swelling, Denies change in voice, Denies dental pain PMFSH - History History Provided By: Patient - Medical History Medical History: Medical History (Last Reviewed 01/29/18 @ 00:43 by Eda Nails MD) Patient denies medical problems - Surgical History Surgical History: Surgical History (Last Reviewed 01/29/18 @ 00:43 by Eda Nails MD) No history of previous surgery - Tobacco History Second Hand Smoke Exposure: No Smoking Status: Never smoker - Alcohol History How Often Do You Have a Drink Containing Alcohol: Never - Substance Use History Substance History: No History of Abuse - Travel History Recent Travel in the [facility] Within the Last 8 Weeks: No Recent Travel Out of the Country Within the Last 8 Weeks: No - Immunization History Tetanus Immunization: Unsure Hx Influenza Vaccine This Season: No Medications and Allergies Active Medications: Active Medications Acetaminophen (Tylenol) 650 mg PO Q4H PRN PRN Reason: Temp > 100.4 Al Hydroxide/Mg Hydroxide (Milk Of Magnesia Liq) 30 ml PO Q12H PRN PRN Reason: Mild Constipation Bisacodyl (Dulcolax Supp) 10 mg RECTAL DAILY PRN PRN Reason: SEVERE CONSITIPATION Dexamethasone Sodium Phosphate (Decadron Inj) 4 mg IV.PUSH Q6HR [facility] Last Admin: 01/29/18 06:06 Dose: 4 mg Sodium Chloride (Ns Inj) 1,000 mls @ 100 mls/hr IV.CONT .Q10H [facility] Last Admin: 01/29/18 05:37 Dose: 100 mls/hr Ampicillin Sodium/Sulbactam (Sodium 3 gm/ Sodium Chloride) 100 mls @ 200 mls/ hr IV.SIG Q6H [facility] Last Admin: 01/29/18 08:10 Dose: 200 mls/hr Lactulose (Lactulose Liq) 30 ml PO DAILY PRN PRN Reason: SEVERE CONSITIPATION Ondansetron HCl (Zofran Inj) 4 mg IV.PUSH Q6H PRN PRN Reason: NAUSEA OR VOMITING Senna/Docusate Sodium (Alondra-Colace) 1 tab PO BID [facility] Sennosides (Senokot) 17.2 mg PO Q12H PRN PRN Reason: Moderate Constipation Temazepam (Restoril) 15 mg PO HS PRN PRN Reason: INSOMNIA Allergies Allergy/AdvReac Type Severity Reaction Status Date / Time No Known Allergies Allergy Unverified 01/28/18 21:10 Home Medications Medication Instructions Recorded Confirmed Type No Known Home Medications 01/29/18 01/29/18 History Physical Exam Vital signs: Vital Signs 01/28/18 21:10 01/29/18 02:58 01/29/18 05:50 Temperature 101 F H 99.3 F 97.8 F Pulse Rate 107 H 107 H 79 Respiratory Rate 16 15 16 Blood Pressure 150/91 H 110/52 L 136/93 H Pulse Oximetry 100 100 Intake & Output 01/28/18 01/29/18 01/29/18 18:59 06:59 18:59 Weight 150 kg Other: Weight On Admission 150 kg - Constitutional no acute distress, thin - Routine HEENT Exam Head: Present: normocephalic, atraumatic. Absent: facial swelling Eye: Present: EOMI ENT: Present: mucous membranes moist Comments: Right tonsillar edema uvula to left. - Routine Neck Exam Present: supple Assessment and Plan - Plan Peritonsillar abscess and tonsillitis. Is scheduled for interval tonsillectomy February 12. Would like to decrease acute inflammation now in preparation for definitive surgery. Risk of a quinsy tonsillectomy, while acutely infected is high. Will observe on IV meds until Saturday morning. If needed can aspirate at bedside then. Will continue on PO meds and follow with Dr Olivas for definitive surgery as planned February 12. Re-eval Saturday am, OK to feed.
[2018-01-29] MEDS: Senna/Docusate Sodium 8.6/50 MG Tablet PO SCH ×3 (09:31→20:36)
[2018-01-29] MEDS ORDERED: Ketorolac Inj 30 MG/ML (IVP) Vial IV.PUSH PRN (11:03)
[2018-01-29] MEDS ORDERED: Lidocaine 4% Top Soln 50 ML Bottle TOPICAL PRN (11:04)
[2018-01-29] MEDS: Ibuprofen 600 MG Tablet PO PRN ×2 (12:29→20:41)
[2018-01-30] MEDS: Sod Chloride 0.9% Inj 1,000 ML IV.CONT SCH (03:08)
[2018-01-30] MEDS: Ampicillin/Sulbactam Inj 3 GM in Sodium Chloride 0.9% Inj 100 ML IV.SIG SCH ×4 (03:18→20:00)
[2018-01-30 09:04] LABS: Hematocrit 38.2 % (39.0-51.0); Hemoglobin 12.3 gm/dL (13.0-17.0); Lymph # (Auto) 0.8 th/mm3 (1.0-4.8); Mean Corpuscular HGB Conc 32.2 % (32.0-36.0); Mean Corpuscular Hemoglobin 29.9 pg (27.0-34.0); Mean Corpuscular Volume 92.8 fL (80.0-100.0); Mean Platelet Volume 8.1 fL (7.0-11.0); Mono # (Auto) 0.8 th/mm3 (0.0-0.9); Neut # (Auto) 25.3 th/mm3 (1.8-7.7); Platelet Count 354 th/mm3 (150-450); Red Blood Count 4.12 mil/mm3 (4.50-5.90); Red Cell Distribution Width 12.8 % (11.6-17.2); White Blood Count 26.9 th/mm3 (4.0-11.0)
[2018-01-30] MEDS: Senna/Docusate Sodium 8.6/50 MG Tablet PO SCH ×2 (09:09→20:45)
--- NOTE | 2018-01-30 09:24 | P.PN ---
Subjective Interval history: Follow-up for peritonsillar abscess, tonsillitis. Patient is currently doing well. Tolerating liquid and food well. No fever or chills. Physical Exam Vital signs: Vital Signs 01/29/18 16:00 01/29/18 20:00 01/30/18 00:00 Temperature 97.9 F 97.6 F 98.0 F Pulse Rate 68 76 83 Respiratory Rate 18 16 18 Blood Pressure 132/81 115/57 L Pulse Oximetry 100 100 01/30/18 04:00 Temperature 98.5 F Pulse Rate 74 Respiratory Rate 16 Blood Pressure 145/58 H Pulse Oximetry 99 Intake & Output 01/29/18 01/30/18 01/30/18 18:59 06:59 18:59 Intake Total 1200 / 1200 2360 / 2360 Balance 1200 / 1200 2360 / 2360 Weight 68 kg Intake: IV 1200 / 1200 1200 / 1200 NS Inj 1,000 ML @ 100 mls/hr IV 1000 / 1000 1000 / 1000 .CONT .Q10H [facility] Rx#:[id number] Unasyn Inj 3 GM In NS Inj 100 200 / 200 200 / 200 ML @ 200 mls/hr IV.SIG Q6H [facility] Rx#:[id number] Oral 1160 / 1160 Other: # Voids 3 # Bowel Movements 0 # Emeses 0 Narrative: GENERAL: Alert, oriented 3, NAD. SKIN: Warm and dry. HEAD: Normocephalic. Tonsils bilaterally enlarged no obvious exudates noted. EYES: No scleral icterus. No injection or drainage. NECK: Supple, trachea midline. No JVD or lymphadenopathy. CARDIOVASCULAR: Regular rate and rhythm without murmurs, gallops, or rubs. RESPIRATORY: Breath sounds equal bilaterally. No accessory muscle use. GASTROINTESTINAL: Abdomen soft, non-tender, nondistended. MUSCULOSKELETAL: No cyanosis, or edema. BACK: Nontender without obvious deformity. No CVA tenderness. Results - Labs CBC & Chem 7: 01/30/18 08:54 01/29/18 02:08 Laboratory Results - last 24 hr 01/30/18 08:54 WBC 26.9 H RBC 4.12 L Hgb 12.3 L D Hct 38.2 L MCV 92.8 MCH 29.9 MCHC 32.2 RDW 12.8 Plt Count 354 MPV 8.1 Neut % (Auto) 94.0 H Lymph % (Auto) 3.0 L [place] % (Auto) 3.0 Eos % (Auto) 0.0 Baso % (Auto) 0.0 Neut # (Auto) 25.3 H Lymph # (Auto) 0.8 L [place] # (Auto) 0.8 Eos # (Auto) 0.0 Baso # (Auto) 0.0 WBC Differential . Differential Comment Auto diff final Assessment and Plan - Plan Mr. Bravo is a pleasant 17-year-old male with no significant medical history who was admitted to the hospital due to sore throat. He was treated in December for sore throat with Decadron and clindamycin. Even though he felt better initially but his symptoms returned once he stopped his antibiotics. During this admission he was evaluated by ENT who recommended elective surgery on February 12. Currently he is on Unasyn antibiotics. Peritonsillar abscess Tonsillitis -Continue Unasyn 3 g every 6 hours. -Patient is currently tolerating diet well including liquids. Will DC IV fluid for now. -Continue Decadron per ENT. -Possible discharge on 01/31/2018 on oral antibiotics. Will consider Augmentin. -Toradol for pain. Full code. Ambulation.
[2018-01-30 09:27] LABS: Anion Gap 8 meq/L (5-15); Blood Urea Nitrogen 10 mg/dL (7-18); Calcium 8.7 mg/dL (8.5-10.1); Carbon Dioxide 23.6 meq/L (21.0-32.0); Chloride 110 meq/L (98-107); Glomerular Filtration Rate Greater Than 89 mL/min (>89); Glucose,Random 130 mg/dL (74-106); Potassium 4.1 meq/L (3.5-5.1); Sodium 142 meq/L (136-145)
[2018-01-31] MEDS: Ampicillin/Sulbactam Inj 3 GM in Sodium Chloride 0.9% Inj 100 ML IV.SIG SCH ×2 (02:18→08:29)
--- NOTE | 2018-01-31 06:39 | P.PN ---
Subjective Interval history: Feels well. No swelling, tolerating full diet. No fever. Physical Exam Vital signs: Vital Signs 01/30/18 08:20 01/30/18 16:00 01/30/18 20:00 Temperature 97.9 F 97.9 F 98.7 F Pulse Rate 75 72 56 L Respiratory Rate 16 15 Blood Pressure 150/73 H 140/65 131/71 Pulse Oximetry 100 100 01/31/18 00:00 01/31/18 04:00 Temperature 98.8 F 98.7 F Pulse Rate 58 L 64 Respiratory Rate 16 18 Blood Pressure 135/75 139/63 Pulse Oximetry 99 100 Intake & Output 01/30/18 01/30/18 01/31/18 06:59 18:59 06:59 Intake Total 2360 / 2360 1500 / 1500 200 / 200 Balance 2360 / 2360 1500 / 1500 200 / 200 Weight 68 kg Intake: IV 1200 / 1200 700 / 700 200 / 200 NS Inj 1,000 ML @ 100 mls/hr IV 1000 / 1000 500 / 500 .CONT .Q10H YANY Rx#:[id number] Unasyn Inj 3 GM In NS Inj 100 200 / 200 200 / 200 200 / 200 ML @ 200 mls/hr IV.SIG Q6H YANY Rx#:[id number] Oral 1160 / 1160 800 / 800 Other: # Voids 3 3 Date of Last Bowel Movement 01/30/18 # Bowel Movements 0 1 # Emeses 0 - Constitutional no acute distress - Routine HEENT Exam Head: Present: normocephalic Eye: Present: EOMI ENT: Present: mucous membranes moist, oropharynx clear, nares patent Results - Labs CBC & Chem 7: 01/30/18 08:54 01/30/18 08:54 Laboratory Results - last 24 hr 01/30/18 01/30/18 08:54 08:54 WBC 26.9 H RBC 4.12 L Hgb 12.3 L D Hct 38.2 L MCV 92.8 MCH 29.9 MCHC 32.2 RDW 12.8 Plt Count 354 MPV 8.1 Neut % (Auto) 94.0 H Lymph % (Auto) 3.0 L [place] % (Auto) 3.0 Eos % (Auto) 0.0 Baso % (Auto) 0.0 Neut # (Auto) 25.3 H Lymph # (Auto) 0.8 L [place] # (Auto) 0.8 Eos # (Auto) 0.0 Baso # (Auto) 0.0 WBC Differential . Differential Comment Auto diff final Sodium 142 Potassium 4.1 Chloride 110 H Carbon Dioxide 23.6 Anion Gap 8 BUN 10 Creatinine 0.70 Estimated GFR Greater than 89 Random Glucose 130 H Calcium 8.7 Microbiology 01/29/18 01:30 Throat Group A Streptococcus Screen/Cult - Preliminary No Beta Streptococci isolated at 24 hours 01/29/18 01:58 Blood - Peripheral Aerobic Blood Culture - Preliminary No growth in 1 day 01/29/18 01:58 Blood - Peripheral Anaerobic Blood Culture - Preliminary No growth in 1 day 01/29/18 02:08 Blood - Peripheral Aerobic Blood Culture - Preliminary No growth in 1 day 01/29/18 02:08 Blood - Peripheral Anaerobic Blood Culture - Preliminary No growth in 1 day Assessment and Plan - Plan Peritonsillar abscess and tonsillitis. Great response to medical therapy. No drainable abscess. Recommend, please: 1. Discharge home 2. Medrol dose pack to taper steroids 3. Augmentin 875 mg BID 14 days 4. Follow up with Dr Olivas for preop appointment Steve .
[2018-01-31] MEDS: Senna/Docusate Sodium 8.6/50 MG Tablet PO SCH (08:30)
--- NOTE | 2018-01-31 08:41 | P.DS ---
Date of admission: 01/29/18 02:55 Primary care physician: No Primary Care Physician Brief History from admission: This is a 17-year-old male with no medical comorbidity presenting with sore throat. Of note, he was in the hospital in December with similar complaints. He was treated with Decadron and clindamycin and felt better but as soon as he stopped his antibiotics, his symptoms came back. He says his recurrent symptoms started about 4 days ago, complaining of mild to moderate pain with minimal relief with ibuprofen. He is supposed to follow-up with ENT for removal of tonsils at the end of January but has been having difficulty swallowing hence the patient decided to the hospital. This is accompanied with fever and chills but no shortness of breath, nausea, vomiting, diarrhea or abdominal pain. DS: Medications - Discharge Medications Prescriptions: amoxicillin-pot clavulanate [Augmentin] 1 tab PO Q12H #28 tab methylprednisolone [Medrol (Jose)] 1 box PO PER PKG DIR #1 each DS: Summary Hospital Course: Mr. Bravo is a pleasant 17-year-old male with no significant medical history who was admitted to the hospital due to sore throat. He was treated in December for sore throat with Decadron and clindamycin. Even though he felt better initially but his symptoms returned once he stopped his antibiotics. During this admission he was evaluated by ENT who recommended elective surgery on February 12. Currently he is on Unasyn antibiotics. Peritonsillar abscess Tonsillitis -Received Unasyn 3 g every 6 hours. -Patient was followed by ENT closely. Patient tolerated diet well. No airway compromise. -After ENT evaluation on 01/31/2018, patient is being discharged home with outpatient follow up with ENT. -Medrol dose jose and Augmentin per ENT. I have printed out prescriptions and gave them to the RN. Full code. Ambulation. - Time Spent with Patient Total time spent providing and/or coordinating discharge services: Less than 30 minutes - Quality: VTE Deep Vein Thrombosis/Pulmonary Embolism Present on Admission: Yes Exam Vital signs: Vital Signs 01/30/18 16:00 01/30/18 20:00 01/31/18 00:00 Temperature 97.9 F 98.7 F 98.8 F Pulse Rate 72 56 L 58 L Respiratory Rate 15 16 Blood Pressure 140/65 131/71 135/75 Pulse Oximetry 100 100 99 01/31/18 04:00 Temperature 98.7 F Pulse Rate 64 Respiratory Rate 18 Blood Pressure 139/63 Pulse Oximetry 100 Intake & Output 01/30/18 01/31/18 01/31/18 18:59 06:59 18:59 Intake Total 1500 / 1500 1220 / 1220 Balance 1500 / 1500 1220 / 1220 Intake: IV 700 / 700 200 / 200 NS Inj 1,000 ML @ 100 mls/hr IV 500 / 500 .CONT .Q10H YANY Rx#:[id number] Unasyn Inj 3 GM In NS Inj 100 200 / 200 200 / 200 ML @ 200 mls/hr IV.SIG Q6H YANY Rx#:[id number] Oral 800 / 800 1020 / 1020 Other: # Voids 3 2 Date of Last Bowel Movement 01/30/18 # Bowel Movements 1 Narrative: GENERAL: Alert, oriented 3, NAD. SKIN: Warm and dry. HEAD: Normocephalic. Tonsils bilaterally enlarged no obvious exudates noted. EYES: No scleral icterus. No injection or drainage. NECK: Supple, trachea midline. No JVD or lymphadenopathy. CARDIOVASCULAR: Regular rate and rhythm without murmurs, gallops, or rubs. RESPIRATORY: Breath sounds equal bilaterally. No accessory muscle use. GASTROINTESTINAL: Abdomen soft, non-tender, nondistended. MUSCULOSKELETAL: No cyanosis, or edema. BACK: Nontender without obvious deformity. No CVA tenderness. Results Procedures completed during hospitalization: None. Labs on day of discharge: Labs from last 24 hours 01/30/18 01/30/18 08:54 08:54 WBC 26.9 H RBC 4.12 L Hgb 12.3 L D Hct 38.2 L MCV 92.8 MCH 29.9 MCHC 32.2 RDW 12.8 Plt Count 354 MPV 8.1 Neut % (Auto) 94.0 H Lymph % (Auto) 3.0 L [place] % (Auto) 3.0 Eos % (Auto) 0.0 Baso % (Auto) 0.0 Neut # (Auto) 25.3 H Lymph # (Auto) 0.8 L [place] # (Auto) 0.8 Eos # (Auto) 0.0 Baso # (Auto) 0.0 WBC Differential . Differential Comment Auto diff final Sodium 142 Potassium 4.1 Chloride 110 H Carbon Dioxide 23.6 Anion Gap 8 BUN 10 Creatinine 0.70 Estimated GFR Greater than 89 Random Glucose 130 H Calcium 8.7 Preliminary micro results at discharge 01/29/18 01:30 Group A Streptococcus Screen/Cult - Preliminary Throat No Beta Streptococci isolated at 24 hours 01/29/18 01:58 Aerobic Blood Culture - Preliminary Blood - Peripheral No growth in 1 day Anaerobic Blood Culture - Preliminary No growth in 1 day 01/29/18 02:08 Aerobic Blood Culture - Preliminary Blood - Peripheral No growth in 1 day Anaerobic Blood Culture - Preliminary No growth in 1 day - Impressions ITS Impressions Soft Tissue Neck CT 01/29/18 00:37 CONCLUSION: 1. Diffuse parapharyngeal inflammation with improved left parapharyngeal abscess now measuring 1.1 x 1.2 cm in comparison to 2.3 x 1.[address] exam. However, there has been interval development of anterior parapharyngeal phlegmon and right parapharyngeal abscess measuring 2.8 x 1.4 cm. Discharge Plan - Discharge Disposition Patient Disposition: Discharge Home - Discharge Condition Condition: Stable - Discharge Order Discharge Orders: Discharge Order (Routine); Ordered 01/31/18 Ordered By: Christos Doyle - Discharge Details Anticipated Discharge Date: 01/31/18 - Physicians Team Primary Care Provider: Primary Care Sirisha Nieto Attending Provider: Christos Doyle Other Providers: Brandon Jeffers MD
[2018-01-31 09:59] LABS: Hematocrit 38.7 % (39.0-51.0); Hemoglobin 12.7 gm/dL (13.0-17.0); Mean Corpuscular HGB Conc 32.9 % (32.0-36.0); Mean Corpuscular Hemoglobin 30.4 pg (27.0-34.0); Mean Corpuscular Volume 92.5 fL (80.0-100.0); Mean Platelet Volume 8.4 fL (7.0-11.0); Platelet Count 356 th/mm3 (150-450); Red Blood Count 4.18 mil/mm3 (4.50-5.90); White Blood Count 19.8 th/mm3 (4.0-11.0)
== END 2018-01-31 10:40 | disposition home or self-care (01) ==
LOC: NEPD 20:05 → NEDA 01-29 02:55 → H6YA 01-29 05:47
PROVIDERS: ADMIT Hospitalist; ATTEND Hospitalist